=== PATIENT | male | born 1975 | race Caucasian/White ===

== ENCOUNTER 2017-05-25 23:17 | Emergency (ER) | payer OTHER ==
[2017-05-26] MEDS ORDERED: DIPH,PERTUS(ACELL)TETVAC-LF 0.5 ML VIAL IM ONE (00:27)
--- NOTE | 2017-05-26 00:37 | ED ---
Upper Extremity HPI - General Chief Complaint: Extremity Injury, Upper Stated Complaint: Finger Pain Time Seen by Provider: 05/26/17 00:22 Source: patient, RN notes reviewed, old records reviewed Mode of arrival: ambulatory Limitations: no limitations - History of Present Illness Initial Comments: Patient is 42-year-old male presenting to emergency Department chief complaint of left middle finger pain. Patient reports that 3 days ago he punctured the distal tip of his finger with a nail. He is a electrical tester. Patient states that he' s noticed some pus and drainage from the area today. Patient reports he does not know the last time he had a tetanus vaccination. He does have full range of motion of the finger and hand. Patient denies any fever or chills or redness or streaking up the hand or arm. - Related Data Previous Rx's Medication Instructions Recorded Cephalexin [Keflex] 500 mg PO Q8HR #21 cap 05/26/17 Mupirocin 2% Oint [Bactroban 2% 1 applic TOPICAL TID #1 tube 05/26/17 Oint] Naproxen 500 mg PO TID #30 tablet 05/26/17 Allergies Allergy/AdvReac Type Severity Reaction Status Date / Time No Known Allergies Allergy Verified 05/26/17 00:03 Review of Systems ROS Statement: Those systems with pertinent positive or pertinent negative responses have been documented in the HPI. ROS Other: All systems not noted in ROS Statement are negative. Past Medical History Past Medical History: No Reported History History of Any Multi-Drug Resistant Organisms: None Reported Past Surgical History: Tonsillectomy Additional Past Surgical History / Comment(s): lumbar lamenectomy, tib fib fx Past Psychological History: No Psychological Hx Reported Smoking Status: Never smoker Past Alcohol Use History: None Reported Past Drug Use History: None Reported General Exam Limitations: no limitations General appearance: alert, in no apparent distress Head exam: Present: atraumatic, normocephalic, normal inspection Eye exam: Present: normal appearance, PERRL, EOMI. Absent: scleral icterus, conjunctival injection, periorbital swelling ENT exam: Present: normal exam, mucous membranes moist Neck exam: Present: normal inspection. Absent: tenderness, meningismus, lymphadenopathy Respiratory exam: Present: normal lung sounds bilaterally. Absent: respiratory distress, wheezes, rales, rhonchi, stridor Cardiovascular Exam: Present: regular rate, normal rhythm, normal heart sounds. Absent: systolic murmur, diastolic murmur, rubs, gallop, clicks GI/Abdominal exam: Present: soft, normal bowel sounds. Absent: distended, tenderness, guarding, rebound, rigid Extremities exam: Present: normal inspection, full ROM, normal capillary refill. Absent: tenderness, pedal edema, joint swelling, calf tenderness Left Hand Wrist exam: Present: swelling (distal ), laceration. Absent: normal inspection Course Vital Signs 05/25/17 05/26/17 23:57 00:52 Temperature 98.1 F 98.4 F Pulse Rate 73 84 Respiratory 16 18 Rate Blood Pressure 136/79 133/68 O2 Sat by Pulse 97 96 Oximetry Disposition Clinical Impression: Superficial injury of left middle finger with infection, Folliculitis, Gout Disposition: HOME SELF-CARE Condition: Good Instructions: Gout (ED) Additional Instructions: Patient denies to monitor for any worsening signs of infection over the finger including severe swelling or drainage. Apply the ointment over your back into the distal end tip of her finger as well. Patient should also take anti- inflammatory medication for the gout. Prescriptions: Cephalexin [Keflex] 500 mg PO Q8HR #21 cap Mupirocin 2% Oint [Bactroban 2% Oint] 1 applic TOPICAL TID #1 tube Naproxen 500 mg PO TID #30 tablet Referrals: Carmen Riley FNPBC [Primary Care Provider] - 1-2 days Time of Disposition: 01:24
[2017-05-26 00:53] VITALS: RESP 18
--- NOTE | 2017-05-26 01:19 | XR ---
EXAM: XR Left Finger(s), 2 or More Views CLINICAL HISTORY: Reason: Pain TECHNIQUE: Frontal, lateral and oblique views of finger(s) of the left hand. COMPARISON: No relevant prior studies available. FINDINGS: Bones/joints: Unremarkable. No acute fracture. No dislocation. Soft tissues: No radiopaque foreign body. IMPRESSION: No acute fracture. No radiopaque foreign body.
[2017-05-26] MEDS ORDERED: CEPHALEXIN 500MG STARTER PACK 4 CAP BTL PO STA (01:30)
[2017-05-26 02:02] VITALS: BP 165/88; PULSE 82; TEMP 98.8
== END 2017-05-26 02:02 | disposition home or self-care (01) ==
LOC: EC 23:17
DX: L08.9 Local infection of the skin and subcutaneous tissue, unspecified (principal); S69.92XA Unspecified injury of left wrist, hand and finger(s), initial encounter; L73.9 Follicular disorder, unspecified; M10.9 Gout, unspecified; Z23 Encounter for immunization; W45.0XXA Nail entering through skin, initial encounter; Y93.89 Activity, other specified; Y92.69 Other specified industrial and construction area as the place of occurrence of the external cause
CPT/HCPCS: 90471; 90715; 99284

== ENCOUNTER 2017-05-28 15:20 | Emergency (ER) | payer OTHER ==
[2017-05-28 15:28] VITALS: BP 155/84; PULSE 75; RESP 16; TEMP 97.3
--- NOTE | 2017-05-28 15:44 | ED ---
General Adult HPI - General Chief complaint: Drug Screen Stated complaint: Drug Screen Time Seen by Provider: 05/28/17 15:37 Source: patient, RN notes reviewed Mode of arrival: ambulatory Limitations: no limitations - History of Present Illness Initial comments: Patient 42-year-old male who presents emergency room today with chief complaint of wanting drug screen. He does admit that he tested positive on a recent drug screen for barbiturates. He states he does not take any medication like this. He states that he went to get to the bottom of the tick came here to the emergency room. He denies any other complaints or symptoms. Patient denies any recent fever, chills, shortness of breath, chest pain, back pain, abdominal pain , nausea or vomiting, numbness or tingling, dysuria or hematuria, constipation or diarrhea, headaches or visual changes, or any other complaints. - Related Data Previous Rx's Medication Instructions Recorded Cephalexin [Keflex] 500 mg PO Q8HR #21 cap 05/26/17 Mupirocin 2% Oint [Bactroban 2% 1 applic TOPICAL TID #1 tube 05/26/17 Oint] Naproxen 500 mg PO TID #30 tablet 05/26/17 Allergies Allergy/AdvReac Type Severity Reaction Status Date / Time No Known Allergies Allergy Verified 05/28/17 15:28 Review of Systems ROS Statement: Those systems with pertinent positive or pertinent negative responses have been documented in the HPI. ROS Other: All systems not noted in ROS Statement are negative. Past Medical History Past Medical History: No Reported History History of Any Multi-Drug Resistant Organisms: None Reported Past Surgical History: Tonsillectomy Additional Past Surgical History / Comment(s): lumbar lamenectomy, tib fib fx Past Psychological History: No Psychological Hx Reported Smoking Status: Never smoker Past Alcohol Use History: None Reported Past Drug Use History: None Reported General Exam - General Exam Comments Initial Comments: General: The patient is awake and alert, in no distress, and does not appear acutely ill. Eye: Pupils are equal, round and reactive to light, extra-ocular movements are intact. No nystagmus. There is normal conjunctiva bilaterally. No signs of icterus. Ears, nose, mouth and throat: There are moist mucous membranes and no oral lesions. Neck: The neck is supple, there is no tenderness or JVD. Cardiovascular: There is a regular rate and rhythm. No murmur, rub or gallop is appreciated. Respiratory: Lungs are clear to auscultation, respirations are non-labored, breath sounds are equal. No wheezes, stridor, rales, or rhonchi. Musculoskeletal: Normal ROM, no tenderness. Strength 5/5. Sensation intact. Pulses equal bilaterally 2+. Neurological: A&O x 3. CN II-XII intact, There are no obvious motor or sensory deficits. Coordination appears grossly intact. Speech is normal. Skin: Skin is warm and dry and no rashes or lesions are noted. Psychiatric: Cooperative, appropriate mood & affect, normal judgment. Limitations: no limitations Course Vital Signs 05/28/17 15:26 Temperature 97.3 F L Pulse Rate 75 Respiratory 16 Rate Blood Pressure 155/84 O2 Sat by Pulse 96 Oximetry Medical Decision Making - Medical Decision Making Patient's x-ray negative. Patient updated on results. Patient will be discharged home. - Lab Data Lab Results 05/28/17 Range/Units 15:38 Urine Opiates Screen Not Detected (NotDetected) Ur Oxycodone Screen Not Detected (NotDetected) Urine Methadone Screen Not Detected (NotDetected) Ur Propoxyphene Screen Not Detected (NotDetected) Ur Barbiturates Screen Not Detected (NotDetected) U Tricyclic Antidepress Not Detected (NotDetected) Ur Phencyclidine Scrn Not Detected (NotDetected) Ur Amphetamines Screen Not Detected (NotDetected) U Methamphetamines Scrn Not Detected (NotDetected) U Benzodiazepines Scrn Not Detected (NotDetected) Urine Cocaine Screen Not Detected (NotDetected) U Marijuana (THC) Screen Not Detected (NotDetected) Disposition Clinical Impression: Encounter for drug screening Disposition: HOME SELF-CARE Condition: Good Referrals: Lsia Aviles MD [Primary Care Provider] - 1-2 days Time of Disposition: 16:11
== END 2017-05-28 16:24 | disposition home or self-care (01) ==
LOC: EC 15:20
DX: Z02.83 Encounter for blood-alcohol and blood-drug test (principal)
CPT/HCPCS: 80306; 99282; 99283

== ENCOUNTER 2017-07-08 12:32 | Day surgery (SDC) | payer OTHER ==
[2017-07-05 09:04] VITALS: BMI 29.9
[~2017-07-08 12:32] MED LIST: LACTATED RINGERS 1,000 ML IV SCH
[2017-07-08 12:55] VITALS: TEMP 97.2
[2017-07-08] MEDS ORDERED: PROPOFOL 10 MG/ML 20 ML VIAL IV ONE ×2 (13:27)
--- NOTE | 2017-07-08 13:58 | P.PCN ---
Date of Procedure: 07/08/17 Preoperative Diagnosis: Postoperative Diagnosis: Procedure(s) Performed: Procedures: 1 Esophagogastroduodenoscopy and biopsy. 2 Total colonoscopy. Preoperative diagnosis: History of GI bleeding. Postoperative diagnosis: 1. Small sliding hiatal hernia with LA grade A distal esophagitis. 2. Mild antral gastritis. 3. Normal colon exam. Preparation: HalfLytely prep. Sedation: Was provided by anesthesia. Brief clinical history: The patient is a 42-year-old male who I have evaluated in the office regarding history of GI bleeding. The patient has consumed alcohol excessively in the past and he has stopped drinking around 3 months ago. There is history of acid reflux and heartburn. He had no prior upper endoscopy or colonoscopy. This evaluation is to assess for complicated reflux disease, peptic ulcer disease, colon neoplasia or other pathology. Procedure: With the patient on his left lateral decubitus position and after informed consent and adequate sedation, I passed the Olympus-GIF 160 video upper endoscope through the cricopharyngeus down the esophagus. GE junction was around 40 cm from the incisors and there was a small sliding hiatal hernia. The distal esophagus showed a short linear erosion or 2 terminating at the level of the GE junction but no ulcers, strictures, Pardo's esophagus or any mucosal tears or varices. The endoscope was then passed into the stomach which was insufflated with air and inspected in detail including the retroflex view in the cardia. There was some mottling and erythema in the antrum but no ulcers or erosions. No bleeding. Pyloric channel, duodenal bulb, was bulbar area and descending duodenum appeared within normal limits. Because of his symptoms, I obtained biopsies from the duodenum, antrum and esophagus then the endoscope was withdrawn and I proceeded with the colonoscopy. Perianal area did not show any fissures or fistulas. There were no masses felt on digital rectal examination. The Olympus CFQ 160L video colonoscope was then inserted in the rectum in the usual fashion and advanced to the cecum. The preparation was good. The mucosa appeared healthy. No polyps or tumors were seen or any obvious diverticular disease or other pathology. I retroflexed the endoscope in the rectum before the endoscope was withdrawn. The patient tolerated the procedure well. Plan: The patient was reassured. I advised regarding antireflux diet and measures. He will use [id number] acid suppressive medications. Will await biopsy results and make further recommendations based on his course and biopsy results. I will keep you updated on his progress. Implants: Indications for Procedure: Operative Findings: Description of Procedure:
[2017-07-08 14:29] VITALS: BP 129/60; PULSE 69; RESP 16
== END 2017-07-08 14:55 | disposition home or self-care (01) ==
LOC: ORWHC2ENDO 12:32
DX: K20.9 Esophagitis, unspecified (principal); K44.9 Diaphragmatic hernia without obstruction or gangrene; K29.70 Gastritis, unspecified, without bleeding; Z87.19 Personal history of other diseases of the digestive system; M10.9 Gout, unspecified; Z79.1 Long term (current) use of non-steroidal anti-inflammatories (NSAID); Z79.899 Other long term (current) drug therapy
CPT/HCPCS: 88305; 45378; 43239; J2704

== ENCOUNTER 2018-02-20 20:34 | Emergency (ER) | payer OTHER ==
--- NOTE | 2018-02-20 21:52 | ED ---
General Adult HPI - General Chief complaint: Psychiatric Symptoms Stated complaint: Mental Health Time Seen by Provider: 02/20/18 21:17 Source: patient, RN notes reviewed Mode of arrival: ambulatory Limitations: no limitations - History of Present Illness Initial comments: Patient is a pleasant 42-year-old male presenting to the emergency Department with depression and suicidal thoughts. Patient had issues with a house he bought back in September here patient has been living out of his car lately. Patient has been drinking daily since September. Patient is drinking approximately 5 pints of whiskey daily. Patient has thoughts of self-harm by drinking too much alcohol. No homicidal thoughts. No physical complaints. No hallucinations. - Related Data Home Medications Medication Instructions Recorded Confirmed Ibuprofen [Ibuprofen] 600 mg PO TID PRN 07/05/17 02/20/18 Baclofen [Lioresal] 10 - 20 mg PO Q8H PRN 02/20/18 02/20/18 Allergies Allergy/AdvReac Type Severity Reaction Status Date / Time No Known Allergies Allergy Verified 02/20/18 21:34 Review of Systems ROS Statement: Those systems with pertinent positive or pertinent negative responses have been documented in the HPI. ROS Other: All systems not noted in ROS Statement are negative. Constitutional: Denies: fever Eyes: Denies: eye pain ENT: Denies: ear pain Respiratory: Denies: cough Cardiovascular: Denies: chest pain Endocrine: Denies: fatigue Gastrointestinal: Denies: abdominal pain Genitourinary: Denies: dysuria Musculoskeletal: Denies: back pain Skin: Denies: rash Neurological: Denies: weakness Psychiatric: Reports: depression, suicidal thoughts. Denies: auditory hallucinations, visual hallucinations, homicidal thoughts Past Medical History Past Medical History: No Reported History Additional Past Medical History / Comment(s): HAD A FEW EPISODES OF HEMATEMESIS. GOUT History of Any Multi-Drug Resistant Organisms: None Reported Past Surgical History: Tonsillectomy Additional Past Surgical History / Comment(s): lumbar lamenectomy, tib fib fx REPAIR Past Anesthesia/Blood Transfusion Reactions: No Reported Reaction Past Psychological History: Anxiety, Depression Smoking Status: Never smoker Past Alcohol Use History: Daily Past Drug Use History: None Reported - Past Family History Father Family Medical History: Cancer General Exam Limitations: no limitations General appearance: alert, in no apparent distress Head exam: Present: atraumatic Eye exam: Present: normal appearance, PERRL, EOMI, nystagmus ENT exam: Present: normal oropharynx Neck exam: Present: normal inspection Respiratory exam: Present: normal lung sounds bilaterally Cardiovascular Exam: Present: regular rate, normal rhythm GI/Abdominal exam: Present: soft. Absent: tenderness, organomegaly Extremities exam: Present: normal inspection Neurological exam: Present: alert Psychiatric exam: Present: depressed Skin exam: Present: normal color Course Vital Signs 02/20/18 02/20/18 02/20/18 20:37 20:40 20:49 Temperature 98.2 F Pulse Rate 63 118 H Pulse Rate [ 125 H Evidence Custodian ] Respiratory 22 95 H Rate Blood Pressure 120/76 148/75 O2 Sat by Pulse 99 97 Oximetry 02/20/18 02/21/18 02/21/18 22:40 00:53 01:30 Temperature Pulse Rate 110 H 105 H 107 H Pulse Rate [ Evidence Custodian ] Respiratory 15 20 19 Rate Blood Pressure 138/61 131/70 O2 Sat by Pulse 97 97 Oximetry 02/21/18 02:00 Temperature Pulse Rate 103 H Pulse Rate [ Evidence Custodian ] Respiratory 19 Rate Blood Pressure 132/75 O2 Sat by Pulse 98 Oximetry - Reevaluation(s) Reevaluation #1: 02/21/18 00:38 EKG #2 shows sinus tachycardia 128. NM 152. QRS 82. QT 310. QTc 452. Right axis. Normal QRS. No acute ST change. EKG Findings - EKG Comments: EKG Findings:: SVT with a rate of 205. QRS 84. QT to 46. QTc 454. Normal axis. Normal QRS. Nonspecific ST-T. Procedures - Procedures Initial comment: Chemical cardioversion: Patient underwent SVT. Patient was given 6 mg of adenosine with conversion to sinus tachycardia and resolution of symptoms. Symptoms are likely related to alcohol use. Medical Decision Making - Medical Decision Making Patient was seen by mental services who does not feel patient needs to be admitted for psychiatric care. Patient reevaluated and resting comfortably in bed. Patient updated on plan and patient does contract for safety. Patient is advised to continue trying to get in to [facility] sooner. - Lab Data Lab Results 02/20/18 Range/Units 23:16 Urine Opiates Screen Not Detected (NotDetected) Ur Oxycodone Screen Not Detected (NotDetected) Urine Methadone Screen Not Detected (NotDetected) Ur Propoxyphene Screen Not Detected (NotDetected) Ur Barbiturates Screen Not Detected (NotDetected) U Tricyclic Antidepress Not Detected (NotDetected) Ur Phencyclidine Scrn Not Detected (NotDetected) Ur Amphetamines Screen Not Detected (NotDetected) U Methamphetamines Scrn Not Detected (NotDetected) U Benzodiazepines Scrn Not Detected (NotDetected) Urine Cocaine Screen Not Detected (NotDetected) U Marijuana (THC) Screen Not Detected (NotDetected) Critical Care Time Critical Care Time: Yes Total Critical Care Time: 32 Disposition Clinical Impression: Depression, Alcohol intoxication, SVT (supraventricular tachycardia) Disposition: HOME SELF-CARE Condition: Stable Instructions: Abuse of Alcohol (ED), Depression (ED), Suicide Prevention for Adults (ED) Additional Instructions: Discontinue alcohol use. Please follow-up with [facility], call tomorrow and try to get in sooner. Return for thoughts of self-harm, worsening symptoms or other concerns. Referrals: Jesusita Alonzo MD [STAFF PHYSICIAN] - 1-2 days Time of Disposition: 03:09
[2018-02-20 23:38] LABS: Amphetamine Screen,Urine Not Detected (NotDetected); Barbiturate Screen,Urine Not Detected (NotDetected); Benzodiazepines Screen,Urine Not Detected (NotDetected); Cocaine Screen,Urine Not Detected (NotDetected); Methadone Screen, Urine Not Detected (NotDetected); Opiate Screen,Urine Not Detected (NotDetected); Oxycodone Screen, Urine Not Detected (NotDetected); Phencyclidine Screen,Urine Not Detected (NotDetected); Tricyclic Antidepressant,Urine Not Detected (NotDetected); Urn Cannabinoid Scrn Not Detected (NotDetected)
[2018-02-21] MEDS ORDERED: LORazepam 2 MG/ML INJ IV STA (00:20)
[2018-02-21] MEDS ORDERED: ADENOSINE 3 MG/ML 2 ML VIAL IVP STA ×2 (00:25)
[2018-02-21] MEDS ORDERED: SODIUM CHLORIDE 0.9% 1,000 ML IV STA (00:26)
[2018-02-21 03:27] VITALS: BP 131/67; PULSE 101; RESP 20; TEMP 98
== END 2018-02-21 03:25 | disposition home or self-care (01) ==
LOC: EC 20:34
DX: I47.1 Supraventricular tachycardia (principal); F32.9 Major depressive disorder, single episode, unspecified; F10.120 Alcohol abuse with intoxication, uncomplicated
CPT/HCPCS: 99291; 96374; 96375; 82075; 93005; 80306; J2060; J0153